=== PATIENT | female | born 1945 | race Caucasian/White ===

== ENCOUNTER 2017-03-27 07:55 | Day surgery (SDC) | payer MEDICARE ==
[2017-03-27] VITALS (8 sets, daily range): BP systolic 108–137; BP diastolic 49–71
[~2017-03-27] VITALS: Ht 167.6 cm; Wt 51.0 kg
[~2017-03-27 07:55] MED LIST: DIAZ5TAB PO
[2017-03-27] MEDS ORDERED: normal saline 1000ml 1,000 ML IV PRN (08:30)
[2017-03-27] MEDS ORDERED: ESCI10TA PO (09:14)
[2017-03-27] MEDS ORDERED: AMLO-93 PO (09:14)
[2017-03-27] MEDS ORDERED: ASCO500C15 PO (09:14)
[2017-03-27] MEDS ORDERED: LISI-600 PO (09:14)
[2017-03-27] MEDS ORDERED: INSU100I7 SQ (09:14)
[2017-03-27] MEDS ORDERED: NITR50CA4 PO (09:14)
[2017-03-27] MEDS ORDERED: LEVE250T4 PO (09:14)
[2017-03-27] MEDS ORDERED: CARV25TA PO (09:14)
[2017-03-27] MEDS ORDERED: ATOR20TA PO (09:14)
[2017-03-27] MEDS ORDERED: OXYB5TAB11 PO (09:14)
[2017-03-27] MEDS ORDERED: INSU100V9 SQ (09:14)
[2017-03-27] MEDS ORDERED: LEVO50TA PO (09:14)
[2017-03-27] MEDS ORDERED: CLOP75TA15 PO (09:14)
[2017-03-27] MEDS ORDERED: LIDOcaine 1%/PF (10mg/ml) 5ml vial ONE (09:15)
[2017-03-27] MEDS ORDERED: LIDOcaine 1%/PF (10mg/ml) 5ml vial SQ ONE (09:45)
[2017-03-27] MEDS ORDERED: heparin 1,000 units/ml 10ml inj ICATH ONE (09:45)
[2017-03-27] MEDS ORDERED: fentaNYL/PF 50MCG/1 ML 2ML syringe IV PRN (09:45)
[2017-03-27] MEDS ORDERED: normal saline 1000ml 1,000 ML IV SCH (09:45)
[2017-03-27] MEDS ORDERED: heparin 1,000unit/ml 10ml vial 10 ML ONE (09:54)
[2017-03-27] MEDS ORDERED: midazolam 2 mg/2 ml injection ONE (09:54)
[2017-03-27] MEDS ORDERED: fentaNYL/PF 50MCG/1 ML 2ML syringe ONE (09:54)
== END 2017-03-27 11:10 | disposition home or self-care (01) ==
LOC: SSTAY O 07:55
PROVIDERS: ATTEND Radiology Vascular & Interventional Radiology
DX: I12.0 Hypertensive chronic kidney disease with stage 5 chronic kidney disease or end stage renal disease (principal); E11.22 Type 2 diabetes mellitus with diabetic chronic kidney disease; N18.5 Chronic kidney disease, stage 5; Z90.49 Acquired absence of other specified parts of digestive tract; Z95.2 Presence of prosthetic heart valve; Z98.890 Other specified postprocedural states; Z88.6 Allergy status to analgesic agent; Z79.4 Long term (current) use of insulin; Z88.8 Allergy status to other drugs, medicaments and biological substances
CPT/HCPCS: 36558; 76937; 77001; 82948; C1750; C1894; J1644; J2001; J2250; J3010; J7030